=== PATIENT | female | born 1985 | race Caucasian/White ===

== ENCOUNTER 2016-09-04 11:26 | Emergency (ER) | payer OTHER ==
[2016-09-04 11:32] VITALS: BP 136/79; PULSE 95; TEMP 99.3; BMI 21.8
--- NOTE | 2016-09-04 12:07 | PDOC ---
History of Present Illness - General Chief Complaint: Sore Throat Stated Complaint: THROAT PAIN Time Seen by Provider: 09/04/16 11:57 History Source: Patient Exam Limitations: No Limitations - History of Present Illness Initial Comments: 09/04/16 12:02 Patient here with complaints of sore throat pain 2 days. States woke up 2 days ago with chills, and difficulty swallowing. States hurts more on the left side than the right side. Has a runny nose, moist cough with thick phlegm production. Has taken Tylenol for pain relief. Works in [employer] at [employer] 09/04/16 12:06 09/04/16 12:29 Timing/Duration: reports: 24 hours Severity: Yes: mild, moderate Presenting Symptoms: Yes: fever, runny nose, sore throat, diarrhea, abdominal pain Past History - Travel Traveled outside of the country in the last 30 days: No Close contact w/someone who was outside of country & ill: No - Past History Allergies/Adverse Reactions: Allergies No Known Allergies Allergy (Verified 09/04/16 11:30) Home Medications: Ambulatory Orders NK [No Known Home Medication] 09/04/16 General Medical History: Yes: no pertinent history Surgical History: Yes: No Surgical History Immunization Status Up to Date: No - Family History Significant Family History: Yes: no pertinent family hx - Social History Smoking History: No Smoking Status: Never smoked Number of Cigarettes Smoked Per Day: 0 Review of Systems - Review of Systems Able to Perform ROS?: Yes Is the patient limited Niuean proficient: Yes Constitutional: Yes: Symptoms Reported HEENTM: Yes: Symptoms Reported Respiratory: Yes: Symptoms reported, See HPI, Cough. No: Wheezing Cardiac (ROS): Yes: See HPI. No: Symptoms Reported ABD/GI: Yes: See HPI. No: Symptoms Reported : Yes: See HPI. No: Symptoms Reported, Burning, Dysuria Musculoskeletal: Yes: Symptoms Reported, See HPI Neurological: Yes: Symptoms reported, See HPI All Other Systems: Reviewed and Negative *Physical Exam - Vital Signs Last Vital Signs Temp Pulse Resp BP Pulse Ox 99.3 F 95 H 18 136/79 99 09/04/16 11:30 09/04/16 11:30 09/04/16 11:30 09/04/16 11:30 09/04/16 11:30 - Physical Exam General Appearance: Yes: Nourished, Appropriately Dressed, Apparent Distress, Mild Distress HEENT: positive: DIANA, TMs Normal (congested but landmarks easily visualized), Pharyngeal Erythema, Tonsillar Erythema, Rhinorrhea. negative: Normal ENT Inspection, Pharynx Normal, Tonsillar Exudate Neck: positive: Tender, Supple, Lymphadenopathy (R), Lymphadenopathy (L) Respiratory/Chest: positive: Lungs Clear, Normal Breath Sounds. negative: Chest Tender Cardiovascular: positive: Regular Rhythm, Regular Rate Gastrointestinal/Abdominal: positive: Normal Bowel Sounds, Soft. negative: Tender Musculoskeletal: positive: Normal Inspection, Other Extremity: positive: Normal Capillary Refill, Normal Inspection, Normal Range of Motion Integumentary: positive: Dry, Warm Neurologic: positive: spray mixer II-XII NML intact, Fully Oriented, Alert, Normal Mood/ Affect, Normal Response, Motor Strength 5/5 Progress Note - Progress Note Progress Note: Strep throat, treat with 1.2 million units IM Bicillin, no reaction after 30 minutes. Follow-up with PMD as needed *DC/Admit/Observation/Transfer Diagnosis at time of Disposition: Strep pharyngitis - Discharge Dispostion Disposition: HOME Condition at time of disposition: Stable Admit: No - Patient Instructions Printed Discharge Instructions: DI for Strep Throat Additional Instructions: Rest, drink lots of fluids: Teas, water, soups Eat cold things: Ice cream, ice pops, ice chips Saltwater gargles Steamy showers/seem to face break up mucus Avoid contact with others until fevers and pain resolved Lots of handwashing and good hygiene, this is contagious You have been treated with Bicillin LA 1.2 million units injection which is a one-time treatment for strep pharyngitis. You will not need to take any further antibiotics. Tylenol or Motrin for fever and pain Followup with private physician in one to 2 days as needed if not improving Return to emergency department for worsened symptoms, fevers, dehydration - Post Discharge Activity Work/School Note: Back to Work
[2016-09-04] MEDS ORDERED: PENICILLIN G BENZATHINE 1,200,000 UNIT/2 ML PFS IM ONE (12:27)
[2016-09-04] MEDS ORDERED: PENICILLIN G BENZATHINE 2,400,000 UNIT/4 ML PFS ONE (12:31)
--- NOTE | 2016-09-05 12:39 | PDOC ---
Patient Follow-up (Call Back) - Post ED Follow - Up Condition at time of discharge: Stable Disposition at time of original discharge: HOME Reason for Call Back: Abnwl. Microbiology (Patient with positive throat culture for beta hemolytic strep group a was treated with Bicillin in the ER appropriate treatment.)
== END 2016-09-04 12:51 | disposition home or self-care (01) ==
LOC: JERFT 11:26
DX: J02.0 Streptococcal pharyngitis (principal)
CPT/HCPCS: 87070; 87430; 99281-25

== ENCOUNTER 2020-08-09 02:27 | Emergency (ER) | payer OTHER ==
[2020-08-09 02:48] VITALS: BP 130/84; TEMP 99.1; BMI 23.1
[2020-08-09] MEDS ORDERED: METOCLOPRAMIDE HCL 10 MG TABLET (FP) PO ONE ×2 (03:35→03:49)
[2020-08-09] MEDS ORDERED: ACETAMINOPHEN 500 MG TABLET (FP) PO ONE (03:36)
[2020-08-09] MEDS ORDERED: ACETAMINOPHEN 325 MG TABLET (FP) ONE (03:48)
[2020-08-10 01:29] VITALS: PULSE 95
== END 2020-08-09 05:10 | disposition home or self-care (01) ==
LOC: JER 02:27
DX: M54.5 Low back pain (principal); R51.9 Headache, unspecified
CPT/HCPCS: 99283-25

== ENCOUNTER 2023-07-28 08:06 | Emergency (ER) | payer OTHER ==
[2023-07-28 08:18] VITALS: BP 134/74; PULSE 96; RESP 18; TEMP 98.7; BMI 25.2
[2023-07-28] MEDS ORDERED: BACITRACIN ZINC 15 GM TUBE TOPICAL OINTMENT ONE (09:35)
[2023-07-28] MEDS ORDERED: DIPHTH,PERTUSS(ACELL),TET 0.5 ML DISP.SYRIN IM ONE (09:36)
[2023-07-28] MEDS: BACITRACIN ZINC 15 GM TUBE TOPICAL OINTMENT TP ONE (09:40)
[2023-07-28] MEDS: DIPHTH,PERTUSS(ACELL),TET 0.5 ML DISP.SYRIN IM ONE (09:40)
== END 2023-07-28 10:08 | disposition home or self-care (01) ==
LOC: JERFT 08:06
DX: O9A.211 Injury, poisoning and certain other consequences of external causes complicating pregnancy, first trimester (principal); S61.011A Laceration without foreign body of right thumb without damage to nail, initial encounter; W26.0XXA Contact with knife, initial encounter
CPT/HCPCS: 99283-25

== ENCOUNTER 2024-01-26 00:54 | Inpatient (IN) | payer OTHER ==
[2024-01-26] MEDS: LACTATED RINGERS SOLUTION 1,000 ML IV SCH (01:30)
[2024-01-26 02:19] LABS: BASO % 0.3 % (0-2.0); EOS % 0.5 % (0-4.5); HEMATOCRIT 39.3 % (32.4-45.2); HEMOGLOBIN 13.4 GM/dL (10.7-15.3); LYMPH % 21.3 % (8-40); MCH 32.1 pg (25.7-33.7); MEAN CELL VOLUME 94.4 fl (80-96); MEAN PLT VOLUME 9.2 fl (7.5-11.1); MONO % 7.3 % (3.8-10.2); NEUT % 70.6 % (42.8-82.8); PLATELET COUNT 199 10^3/uL (134-434); RBC 4.16 M/mm3 (3.60-5.2); RDW 13.2 % (11.6-15.6); WHITE BLOOD COUNT 9.5 K/mm3 (4.0-10.0)
[2024-01-26] MEDS ORDERED: FENTANYL/BUPIVACAINE/NS/PF - PCEA - 50 ML DISP.SYRIN EP ONE (02:24)
[2024-01-26 02:28] LABS: INR 0.88 (0.83-1.09); PROTHROMBIN TIME (PATIENT) 10.2 SEC (9.7-13.0)
[2024-01-26 02:31] LABS: ACTIVATED PTT 26.7 SECONDS (25.2-36.5)
[2024-01-26 02:38] LABS: BLOOD UREA NITROGEN 14.2 mg/dL (7-18); CALCIUM 8.8 mg/dL (8.5-10.1)
[2024-01-26 02:42] LABS: CREATININE 0.5 mg/dL (0.55-1.3)
[2024-01-26] MEDS: FENTANYL/BUPIVACAINE/NS/PF - PCEA - 50 ML DISP.SYRIN EP SCH (02:50)
[2024-01-26] MEDS: AMPICILLIN - 2 GM in SODIUM CHLORIDE 100 ML IVPB ONE (02:55)
[2024-01-26] MEDS ORDERED: AMPICILLIN SODIUM 2 GM VIAL ONE (02:55)
[2024-01-26] MEDS ORDERED: OXYTOCIN 20 UNITS in 0.9% NS 20 UNIT/1,000 ML INFUS.BAG IV ONE (03:55)
[2024-01-26] MEDS: OXYTOCIN 20 UNITS in 0.9% NS 20 UNIT/1,000 ML INFUS.BAG IV SCH (04:13)
[2024-01-26] MEDS ORDERED: BISACODYL 10 MG SUPP.RECT RC PRN (04:16)
[2024-01-26] MEDS ORDERED: oxyCODONE HCL 5 MG TABLET PO PRN (04:16)
[2024-01-26] MEDS ORDERED: ACETAMINOPHEN 325 MG TABLET (FP) PO PRN (04:16)
[2024-01-26] MEDS ORDERED: WITCH HAZEL 50% (TUCKS) 40 PAD/JAR PAD TP PRN (04:16)
[2024-01-26] MEDS ORDERED: BENZOCAINE 28 GM HEMORRHOIDAL OINTMENT TP PRN (04:16)
[2024-01-26] MEDS ORDERED: METHYLERGONOVINE MALEATE 0.2 MG/1 ML AMP IM PRN (04:16)
[2024-01-26 05:16] LABS: CORD BASE EXCESS -4.2 mmol/L (0-2); CORD BASE EXCESS -6.3 mmol/L (0-2); CORD HCO3 19.8 mmHg (20-29); CORD HCO3 24.5 mmHg (20-29); CORD PCO2 41.3 mmHg (30-78); CORD PCO2 58.8 mmHg (30-78); CORD pH 7.237 (7.14-7.44); CORD pH 7.299 (7.14-7.44)
[2024-01-26] MEDS ORDERED: NALOXONE HCL 0.4 MG/ML VIAL IVPUSH PRN (05:27)
[2024-01-26] MEDS: BENZOCAINE 20% 57 GM BOTTLE TP PRN (08:01)
[2024-01-26] MEDS: IBUPROFEN 600 MG TABLET (FP) PO PRN (08:02)
[2024-01-26 08:06] VITALS: RESP 18
[2024-01-26] MEDS: AMPICILLIN - 1 GM in SODIUM CHLORIDE 100 ML IVPB SCH (08:38)
[2024-01-27 08:32] LABS: BASO % 0.6 % (0-2.0); EOS % 0.9 % (0-4.5); HEMATOCRIT 36.2 % (32.4-45.2); HEMOGLOBIN 12.3 GM/dL (10.7-15.3); LYMPH % 22.8 % (8-40); MCH 32.1 pg (25.7-33.7); MCHC 33.8 g/dl (32.0-36.0); MEAN CELL VOLUME 94.9 fl (80-96); MEAN PLT VOLUME 9.7 fl (7.5-11.1); MONO % 5.8 % (3.8-10.2); NEUT % 69.9 % (42.8-82.8); PLATELET COUNT 171 10^3/uL (134-434); RBC 3.82 M/mm3 (3.60-5.2); RDW 13.5 % (11.6-15.6); WHITE BLOOD COUNT 12.3 K/mm3 (4.0-10.0)
[2024-01-27] MEDS ORDERED: SENNOSIDES/DOCUSATE COMBO (SENNA PLUS) TABLET (UD) PO PRN (22:00)
[2024-01-27 22:31] VITALS: BP 121/80; PULSE 89; TEMP 98
== END 2024-01-28 11:53 | disposition home or self-care (01) | DRG 807 ==
LOC: JDEL 00:54 → JLDR 01:20 → J3W 07:50
PROVIDERS: ADMIT Obstetrics & Gynecology; ATTEND Obstetrics & Gynecology
PROC: 10E0XZZ Delivery of Products of Conception, External Approach (ICD-10-PCS; principal; 2024-01-26)
DX: O24.420 Gestational diabetes mellitus in childbirth, diet controlled (principal); Z37.0 Single live birth; Z3A.37 37 weeks gestation of pregnancy
CPT/HCPCS: 36415; 36600; 59409; 80048; 82803; 82962; 85025; 85610; 85730; 86780; 86850; 86900; 86901; 88307-TC